=== PATIENT | male | born 1995 | race Caucasian/White ===

== ENCOUNTER 2018-09-24 16:46 | Emergency (ER) | payer SELFPAY ==
[~2018-09-24] VITALS: Ht 177.8 cm; Wt 92.1 kg
[2018-09-24 16:46] VITALS: BP_SYST 129
--- NOTE | 2018-09-24 16:46 | NUR ---
Patient triaged and placed in waiting room. VSS and patient appears in no acute distress at this time. Accompanied by FAMILY, awaiting available bed, and MD notified of need for MSE.
[2018-09-24 18:36] LABS: BASOPHILS # (AUTO) 0.1 K/uL (0.0-0.2); BASOPHILS % (AUTO) 1.1 % (0.0-2.0); EOSINOPHILS # (AUTO) 0.2 K/uL (0.0-0.4); HEMATOCRIT 41.8 % (36-54); HEMOGLOBIN 14.6 g/dL (14.0-18.0); LYMPHOCYTES # (AUTO) 3.2 K/uL (1.0-5.5); LYMPHOCYTES % (AUTO) 46.7 % (20.5-51.5); MEAN CORPUSCULAR HEMOGLOBIN 31 pg (27-31); MEAN CORPUSCULAR HGB CONC 35 % (32-36); MEAN CORPUSCULAR VOLUME 88 fL (79.0-98.0); MONOCYTES # (AUTO) 0.3 K/uL (0.0-1.0); MONOCYTES % (AUTO) 4.1 % (1.7-9.3); NEUTROPHILS # (AUTO) 3.1 K/uL (1.8-7.7); NEUTROPHILS % (AUTO) 45.1 % (40.0-70.0); PLATELET COUNT (AUTO) 284 K/uL (130-430); RED BLOOD CELL COUNT(AUTO) 4.75 MIL/uL (4.2-6.2); RED CELL DISTRIBUTION WIDTH 12.5 % (9.0-15.0); WHITE BLOOD COUNT (AUTO) 6.8 K/uL (4.8-10.8)
[2018-09-24 18:42] LABS: CALCIUM 9.4 mg/dL (8.4-11.0); CREATININE 0.81 mg/dL (0.55-1.30); POTASSIUM 3.7 mmol/L (3.5-5.1)
[2018-09-24 18:47] LABS: ALBUMIN 4.2 g/dL (3.4-4.8); TOTAL BILIRUBIN 0.4 mg/dL (0.0-1.0)
--- NOTE | 2018-09-24 19:29 | NUR ---
Placed in bed 2 to gown to exam.
--- NOTE | 2018-09-24 19:40 | NUR ---
Pt BIB family to ED C/O R lateral Abd pain radiating toward middle and up for about a month, gradually getting worse. Feeling SOB at times. No significant med hx. No other complaints and or injuries noted. VSS no s/s of acute distress. Resting on gurney with rails up
--- NOTE | 2018-09-24 20:00 | NUR ---
Dr. Grady bedside for Pt eval
[2018-09-24 20:03] LABS: BILIRUBIN,URINE NEGATIVE (NEGATIVE); BLOOD, URINE NEGATIVE (NEGATIVE); CLARITY/URINE CLEAR (CLEAR); COLOR,URINE YELLOW (YELLOW); GLUCOSE,URINE NEGATIVE (NEGATIVE); KETONES,URINE NEGATIVE (NEGATIVE); LEUKOCYTE ESTERASE ,URINE NEGATIVE (NEGATIVE); NITRITE, URINE NEGATIVE (NEGATIVE); PH,URINE 6.5 (5.0-8.0); PROTEIN URINE NEGATIVE (NEGATIVE)
--- NOTE | 2018-09-24 21:15 | NUR ---
Pt taken to Radiology in stable condition
--- NOTE | 2018-09-24 21:25 | NUR ---
Pt back from Radiology, well tolerated
--- NOTE | 2018-09-24 21:39 | NUR ---
Dr. Grady bedside for Pt update
[2018-09-24] MEDS ORDERED: IBUPROFEN 600 MG TABLET PO ONE (22:00)
[2018-09-24 22:10] VITALS: BP_SYST 129
--- NOTE | 2018-09-24 22:10 | NUR ---
Patient given written and verbal discharge instructions and verbalizes understanding. ER MD discussed with patient the results and treatment provided. Patient in stable condition. ID arm band removed. Rx of Motrin given. Patient educated on pain management and to follow up with PMD. Pain Scale 0/10. Opportunity for questions provided and answered. Medication side effect fact sheet provided.
== END 2018-09-24 22:10 | disposition home or self-care (01) ==
LOC: SED 16:46
DX: K76.0 Fatty (change of) liver, not elsewhere classified (principal); F17.210 Nicotine dependence, cigarettes, uncomplicated; Z86.79 Personal history of other diseases of the circulatory system
CPT/HCPCS: 36415; 76700-TC; 80053; 81003; 83690-TC; 85025; 99284

== ENCOUNTER 2019-08-08 15:17 | Emergency (ER) | payer BC ==
[~2019-08-08] VITALS: Ht 177.8 cm; Wt 90.7 kg
[2019-08-08 15:43] VITALS: BP_SYST 118
[2019-08-08 16:49] VITALS: BP_SYST 120
== END 2019-08-08 16:49 | disposition home or self-care (01) ==
LOC: SED 15:17
DX: T15.91XA Foreign body on external eye, part unspecified, right eye, initial encounter (principal); Z86.73 Personal history of transient ischemic attack (TIA), and cerebral infarction without residual deficits; W22.8XXA Striking against or struck by other objects, initial encounter; Y93.89 Activity, other specified; Y92.411 Interstate highway as the place of occurrence of the external cause; Y99.8 Other external cause status
CPT/HCPCS: 99283

== ENCOUNTER 2019-10-20 17:29 | Emergency (ER) | payer OTHER, BC ==
[~2019-10-20] VITALS: Ht 175.3 cm; Wt 90.7 kg
--- NOTE | 2019-10-20 17:30 | NUR ---
RECEIVED AND IN ROOM ANUP[facility] TO ASSUME CARE
[2019-10-20 17:36] VITALS: BP_SYST 126
--- NOTE | 2019-10-20 17:45 | NUR ---
DR CARDOSO IN TO ASSESS
[2019-10-20] MEDS ORDERED: KETOROLAC TROMETHAMINE 60 MG/2 ML VIAL IM ONE (18:00)
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
[2019-10-20 18:58] VITALS: BP_SYST 124
--- NOTE | 2019-10-20 18:58 | NUR ---
Patient given written and verbal discharge instructions and verbalizes understanding. ER MD discussed with patient the results and treatment provided. Patient in stable condition. ID arm band removed. Rx of Motrin given. Patient educated on pain management and to follow up with PMD. Pain Scale 3/10. Opportunity for questions provided and answered. Medication side effect fact sheet provided.
== END 2019-10-20 18:58 | disposition home or self-care (01) ==
LOC: SED 17:29
DX: S13.4XXA Sprain of ligaments of cervical spine, initial encounter (principal); R10.32 Left lower quadrant pain; V49.50XA Passenger injured in collision with unspecified motor vehicles in traffic accident, initial encounter; Y93.89 Activity, other specified; Y92.89 Other specified places as the place of occurrence of the external cause; Y99.8 Other external cause status
CPT/HCPCS: 96372; 99283; J1885

== ENCOUNTER 2020-05-13 07:54 | Emergency (ER) | payer SELFPAY ==
[~2020-05-13] VITALS: Ht 175.3 cm; Wt 95.3 kg
[2020-05-13 08:09] VITALS: BP_SYST 134
--- NOTE | 2020-05-13 08:09 | NUR ---
Patient to ER bed 7 to gown for evaluation. Side rails up.
--- NOTE | 2020-05-13 08:11 | NUR ---
Patient presented to ER C/O chest pain. Patient ambulatory to ER, A&Ox4 skin pink & warm, respirations unlabored equal bilat, afebrile, denies N/V/D, pain /10. Patient reports chest pain x2 days.
--- NOTE | 2020-05-13 08:15 | NUR ---
ER Dr. Cabral at bedside examining patient.
[2020-05-13] MEDS ORDERED: KETOROLAC TROMETHAMINE 60 MG/2 ML VIAL IM ONE (08:30)
[2020-05-13] MEDS ORDERED: NAPR-688 PO (09:07)
[2020-05-13 09:20] VITALS: BP_SYST 138
--- NOTE | 2020-05-13 09:20 | NUR ---
Patient given written and verbal discharge instructions and verbalizes understanding. ER MD discussed with patient the results and treatment provided. Patient in stable condition. ID arm band removed. Rx of NAPROXEN given. Patient educated on pain management and to follow up with PMD. Pain Scale 3/10 . Opportunity for questions provided and answered. Medication side effect fact sheet provided.
== END 2020-05-13 09:20 | disposition home or self-care (01) ==
LOC: SED 07:54
DX: R07.89 Other chest pain (principal); Z86.73 Personal history of transient ischemic attack (TIA), and cerebral infarction without residual deficits
CPT/HCPCS: 71045; 93005; 96372; 99283; J1885